=== PATIENT | female | born 1980 | race Caucasian/White ===

== ENCOUNTER 2019-05-31 00:15 | Inpatient (IN) | payer MEDICAID ==
[~2019-05-31] VITALS: Ht 167.6 cm; Wt 72.1 kg
[2019-05-31 00:15] VITALS: BP 125/80
--- NOTE | 2019-05-31 00:15 | NUR ---
39 Y/O FEMALE BIB EMS. EMS STATES PT TOLD DRIVE THROUGH [place] AT [place] IN THE BOX TO CALL 911. PT THEN WALKED TO THE SIDE OF THE DRIVE THROUGH AND LAYED DOWN. PT SMELLS OF ALCOHOL. BILAT EYES PERRLA. NO HAND ADMINISTRATOR PESTICIDE OR ABLE TO FOLLOW ORDERS AT THIS TIME. PT RESPONSIVE TO PAIN ONLY. VSS POSITOINED IN BED WITH HOB ELEVATED AND POSITIONED ON LEFT SIDE. CONTINUE TO MONITOR.
--- NOTE | 2019-05-31 00:15 | NUR ---
TRANSFERED FROM [facility] TO [facility].
[2019-05-31] MEDS ORDERED: NACL 0.9% 2,000 ML IV ONE (01:00)
--- NOTE | 2019-05-31 01:00 | NUR ---
PT IN BED RESTING WITH EYES CLOSED. VSS. ER MD AWARE. CONTINUE TO MONITOR.
--- NOTE | 2019-05-31 02:00 | NUR ---
PT IN BED RESTING WITH EYES CLOSED. VSS. ER AWARE. CONTINUE TO LUCIANA.
--- NOTE | 2019-05-31 05:00 | NUR ---
PT IN BED RESTING WITH EYES CLOSED. VSS. ER MD AWARE. CONTINUE TO MONITOR.
--- NOTE | 2019-05-31 05:15 | NUR ---
PT AWAKE AND REQUESTING PO FLUIDS. CONTINUE TO MONITOR.
--- NOTE | 2019-05-31 06:00 | NUR ---
PT STATES WISH TO SPEAK TO ER MD. ASKED PT WHY. PT STATES, "I WAS FEELING SUICIDAL EARLIER." I ASKED HER IF SHE IS FEELING LIKE THAT NOW. SHE REPLIED, "YES, MY BOYFRIEND BROKE UP WITH ME. SO I DRANK AND IM AFFRAID I WILL HURT MYSELF. I HAVE A HISTORY OF DEPRESSION AND CUTTING MYSELF. I AM FEELING VERY DEPRESSED RIGHT NOW." WHEN ASKED WHAT HER PLAN IS, HOW SHE INTENDS ON HARMING HERSELF, PATIENT REPLIED WITH. "I DON'T KNOW. I'M NOT GOING HOME. I AM UNSURE AND I DON'T HAVE A PLAN. I AM AFFRAID I WILL HURT MYSELF." DR PAULINO NOTIFIED. PT CALM. CONTINUE TO MONITOR.
--- NOTE | 2019-05-31 06:05 | NUR ---
ROOM STRIPPED AND BELONGINGS PLACED IN BAG AND LABLED. SENT TO SECURITY UNTIL PT IS RELEASED. PT STATES VOLUNTARY FOR HOLD. PT CALM. LAYING IN BED. CONTINUE TO MONITOR.
--- NOTE | 2019-05-31 06:06 | NUR ---
PT INFROMED THAT NO HOLD IS WRITTEN AT THIS TIME BUT A HOLD WILL BE WRITTEN IF SHE ATTEMPTS TO LEAVE. INFORMED PT THAT HER SAFETY IS OF THE HIGHEST CONCERN. PT STATES, "THANK YOU AND I UNDERSAND." EDMOND WILLOUGHBY NOTIFIED. CONTINUE TO MONITOR.
--- NOTE | 2019-05-31 06:28 | NUR ---
TELEPSYCH REQUEST INITIATED
[2019-05-31 06:46] LABS: HEMATOCRIT 26.9 % (36-48); HEMOGLOBIN 8.4 g/dL (12.0-16.0); MEAN CORPUSCULAR HEMOGLOBIN 24 pg (27-31); MEAN CORPUSCULAR HGB CONC 31 g/dL (33-37); MEAN CORPUSCULAR VOLUME 78.1 fL (80-94); PLATELET COUNT (AUTO) 129 K/uL (140-450); RED BLOOD CELL COUNT(AUTO) 3.44 MIL/uL (4.20-5.40); RED CELL DISTRIBUTION WIDTH 24.7 % (11.6-13.7); WHITE BLOOD COUNT (AUTO) 3.3 K/uL (4.8-10.8)
--- NOTE | 2019-05-31 06:55 | NUR ---
URINE SAMPLE COLLECTED AND TAKEN TO LAB.
[2019-05-31 07:07] LABS: LYMPHOCYTES % (MANUAL) 46 % (20-46)
[2019-05-31 07:08] LABS: EOSINOPHILS % (MANUAL) 2 % (0-4); MONOCYTES % (MANUAL) 4 % (5-12)
[2019-05-31 07:09] LABS: CARBON DIOXIDE 28.9 mmol/L (21-32); CHLORIDE 110 mmol/L (98-107); CREATININE 0.4 mg/dL (0.6-1.3); GFR ARICAN-AMERICAN 226 mL/min (>90); GLUCOSE 85 mg/dL (74-106); POTASSIUM 3.9 mmol/L (3.5-5.1); SODIUM SERUM 144 mmol/L (136-145); UREA NITROGEN, BLOOD 13 mg/dL (7-18)
--- NOTE | 2019-05-31 07:10 | NUR ---
ALL PT'S BELONGS SENT WITH TRACK LAYER HEAD POPEYE.
[2019-05-31 07:14] LABS: BARBITURATE, URINE NEG. ng/ml (NEG <=200); BENZODIAZEPINE, URINE NEG. ng/mL (NEG <=200); CANNABINOID, URINE POS. ng/mL (NEG <=50); COCAINE, URINE NEG. ng/mL (NEG <=300); OPIATE, URINE NEG. ng/mL (NEG <=2000); PHENCYCLIDINE SCREEN,URINE NEG. ng/mL (NEG <=25)
[2019-05-31 07:14] LABS: ASPARTATE AMINOTRANSFERASE 35 U/L (15-37); TOTAL BILIRUBIN 0.1 mg/dL (0.0-1.0)
[2019-05-31 07:15] LABS: ACETAMINOPHEN < 0.5 ug/ml (10-30); SALICYLATE < 2.8 mg/dL (2.8-20.0)
--- NOTE | 2019-05-31 07:15 | NUR ---
Report given to Julianne VASQUEZ.
--- NOTE | 2019-05-31 08:11 | NUR ---
Patient appears to be resting in bed. Vital Signs within normal limits. Respirations even and unlabored.
--- NOTE | 2019-05-31 08:54 | NUR ---
JANNA SPRAGUE AT BEDSIDE
--- NOTE | 2019-05-31 08:57 | NUR ---
BREAKFAST AT BEDSIDE
--- NOTE | 2019-05-31 09:01 | NUR ---
Received report from PEDRO Whitaker.
--- NOTE | 2019-05-31 09:10 | NUR ---
Pt report given to PEDRO MORSE. Transfer of care at this time.
--- NOTE | 2019-05-31 10:05 | NUR ---
PT IS RESTING WITH EYES CLOSED IN BED. VSS.
--- NOTE | 2019-05-31 10:25 | NUR ---
SPOKE AND GIVEN REPORT TO PSYCHAITRST VIA PHONE.
--- NOTE | 2019-05-31 10:35 | NUR ---
PSYCHAITRIST IS EVALUATING PT VIA TELEMED.
--- NOTE | 2019-05-31 10:42 | NUR ---
SPOKE TO DR. SHERWOOD. ORDER RECEIVED VIA PHONE HOLD PT ON [id number].
--- NOTE | 2019-05-31 11:05 | NUR ---
[place] [employer] AT BEDSIDE EVALUATING PATIENT
--- NOTE | 2019-05-31 11:11 | NUR ---
Sb nelson in [facility] - 05/31/19 at 1113 [address] [place]UL[place]YA PD IS AT BEDSIDE.
--- NOTE | 2019-05-31 12:13 | NUR ---
[facility] received pt packet via fax. The following facilities have been contacted regarding placement. [facility]: s/w Nery, states no beds at this time. Packet faxed for review. [facility]: No beds available, packet faxed for review. [facility]: s/w Melonie, no beds available. [facility]: s/w Maggie, states they will review packet Will continue to contact facilities, will contact with any update.
--- NOTE | 2019-05-31 12:32 | NUR ---
PT IS SLEEPING IN BED. VSS.
--- NOTE | 2019-05-31 12:42 | NUR ---
Patient appears to be resting in bed. Vital Signs within normal limits. Respirations even and unlabored.
--- NOTE | 2019-05-31 12:53 | NUR ---
LUNCH AT BEDSIDE
--- NOTE | 2019-05-31 13:39 | NUR ---
PT IS SLEEPING IN BED AT THIS TIME. VSS.
--- NOTE | 2019-05-31 14:44 | NUR ---
PT IS EATING IN BED. PT REPORTS HAVING SHAKINGS. DR. WEISS NOTIFIED AND EVALUATED PT AT BEDSIDE.
[2019-05-31] MEDS ORDERED: LORazepam 2 MG/ML VIAL IVP ONE (14:55)
--- NOTE | 2019-05-31 16:12 | NUR ---
PT IS SLEEPING IN BED.
--- NOTE | 2019-05-31 17:33 | NUR ---
PT IS RESTING IN BED WITH EYES CLOSED. VSS.
[2019-05-31] MEDS ORDERED: DOCUSATE SODIUM 100 MG GELCAP PO PRN (17:35)
[2019-05-31] MEDS ORDERED: ACETAMINOPHEN 325 MG TAB PO PRN (17:35)
[2019-05-31] MEDS ORDERED: HYDROcodone/APAP 5/325 MG 1 TAB TAB PO PRN (17:35)
[2019-05-31] MEDS ORDERED: LORazepam 2 MG/ML VIAL IM/IVP PRN ×2 (17:35→22:10)
[2019-05-31] MEDS ORDERED: ONDANSETRON 4 MG/2 ML VIAL IM/IVP PRN (17:35)
[2019-05-31] MEDS ORDERED: chlordiazePOXIDE 25 MG CAP PO SCH (17:40)
--- NOTE | 2019-05-31 17:43 | NUR ---
XRAY AT BEDSIDE
--- NOTE | 2019-05-31 17:45 | NUR ---
CALL TO RFID ENGINEER MAMEY FOR [facility] ROOM-ROOM GIVEN 110. ROOM ETA TO FOR PT UNK AT THIS TIME.
--- NOTE | 2019-05-31 17:54 | NUR ---
LAB AT BEDSIDE
--- NOTE | 2019-05-31 18:21 | NUR ---
PT AMB TO RESTROOM WITH STEADY GAIT, ASSISTED BY JEAN BAUTISTA
[2019-05-31 18:39] LABS: MAGNESIUM 1.3 mg/dL (1.8-2.4); PHOSPHORUS 2.9 mg/dL (2.5-4.9); THYROID STIMULATING HORMONE 2.67 uIU/mL (0.34-3.74)
--- NOTE | 2019-05-31 19:35 | NUR ---
PT ARRIVED AT UNIT VIA GURNEY, PT STABLE, NO DISTRESS NOTED, IV TO L AC 20G PATENT, INTACT, SL, PT ON ROOM AIR, NO SOB NOTED, RECEIVED REPORT FROM ER NURSE ELLE RN, PT DROWSY, EASILY ARROUSEABLE, MRSA SWAB TAKEN, V/S TAKEN WNL, INITIAL ASSESSMENT DONE, ALL SAFETY PRECAUTION MET, SITTER AT BEDSIDE, WILL CONTINUE TO MONITOR.
[2019-05-31 19:55] VITALS: BP 124/74
--- NOTE | 2019-05-31 20:50 | NUR ---
DUE MEDICATION ADMINISTERED, PT TOLERATED WELL, NO DISTRESS NOTED, SITTER AT BEDSIDE, WILL CONTINUE TO MONITOR.
[2019-05-31] MEDS ORDERED: MAGNESIUM OXIDE 400 MG TAB PO SCH (21:00)
[2019-05-31] MEDS: NACL 0.45% 1,000 ML IV SCH (21:00)
--- NOTE | 2019-05-31 22:10 | NUR ---
TALKED TO DR. BARRETT REGARDING PT TELE STATUS, PER DR. PITTMAN TO PUT PT ON M/S.
[2019-06-01] VITALS: BP 120/77
--- NOTE | 2019-06-01 00:01 | NUR ---
PT V/S TAKEN, WNL, SITTER AT BEDSIDE, WILL CONTINUE TO MONITOR.
[2019-06-01] MEDS ORDERED: CALCIUM CARBONATE 500 MG TAB.CHEW PO PRN (00:25)
--- NOTE | 2019-06-01 02:58 | NUR ---
ENDORSED PT TO PEDRO PEÑA FOR CONTINUOUS OF CARE.
--- NOTE | 2019-06-01 03:00 | NUR ---
RECEIVED ENDORSEMENT FORM JOSE VASQUEZ FOR CONTINUITY OF CARE, PT IN STABLE CONDITION.
--- NOTE | 2019-06-01 06:39 | NUR ---
PT SLEEPING IN BED NO S/S OF PAIN OR DISTRESS NOTED. MD CONSULT WITH PT DURING ROUNDS. IV FLUIDS 1/2 NS RUNNING AT 60MLS/HR ORDERED. SITTER AT BEDSIDE WILL ENDORSE PLAN OF CARE TO AM SHIFT, PT IN STABLE CONDITION.
--- NOTE | 2019-06-01 07:01 | NUR ---
PATIENT HAS BEEN SCREENED AND CATEGORIZED HIGH NUTRITION RISK. PATIENT WILL BE SEEN WITHIN 1-2 DAYS OF ADMISSION. 06/01/19-06/02/19 JULIO CEVALLOS MS, RDN
[2019-06-01 08:00] LABS: BASOPHILS % (AUTO) 0.6 % (0.0-2.0); EOSINOPHILS % (AUTO) 1.2 % (0.0-4.0); HEMATOCRIT 27.3 % (36-48); HEMOGLOBIN 8.5 g/dL (12.0-16.0); LYMPHOCYTES # (AUTO) 1.1 K/uL (2.5-16.5); LYMPHOCYTES % (AUTO) 26.2 % (20.5-51.1); MEAN CORPUSCULAR HEMOGLOBIN 25 pg (27-31); MEAN CORPUSCULAR HGB CONC 31 g/dL (33-37); MEAN CORPUSCULAR VOLUME 78.2 fL (80-94); MONOCYTES # (AUTO) 0.5 K/uL (0.8-1.0); MONOCYTES % (AUTO) 11.5 % (1.7-9.3); NEUTROPHILS # (AUTO) 2.5 K/uL (1.8-7.7); NEUTROPHILS % (AUTO) 60.5 % (42.2-75.2); PLATELET COUNT (AUTO) 129 K/uL (140-450); RED BLOOD CELL COUNT(AUTO) 3.49 MIL/uL (4.20-5.40); RED CELL DISTRIBUTION WIDTH 25.2 % (11.6-13.7); WHITE BLOOD COUNT (AUTO) 4.1 K/uL (4.8-10.8)
[2019-06-01 08:34] LABS: ANION GAP 7.9 (8-16); CARBON DIOXIDE 27.7 mmol/L (21-32); CREATININE 0.5 mg/dL (0.6-1.3); POTASSIUM 3.6 mmol/L (3.5-5.1)
[2019-06-01 08:43] LABS: CHOL/HDL RATIO 2.3 (1-4.5)
[2019-06-01] MEDS ORDERED: MULTIVITAMIN-12 10 ML, THIAMINE 100 MG, MAGNESIUM SULFATE 50% 2,000 MG, FOLIC ACID 1 MG... IV ONE ×5 (09:00)
--- NOTE | 2019-06-01 09:00 | NUR ---
RECEIVED PATIENT ASLEEP, SITTER AT BEDSIDE, NOT IN ANY DISTRESS NOTED. WITH IVF ON GOING AND INFUSING WELL. WILL CONTINUE TO MONITOR.
[2019-06-01] MEDS: FERROUS SULFATE 325 MG TABEC PO SCH (09:05)
[2019-06-01] MEDS: PANTOPRAZOLE 40 MG TABEC PO SCH (09:05)
[2019-06-01 09:10] LABS: MAGNESIUM 1.5 mg/dL (1.8-2.4); PHOSPHORUS 3.4 mg/dL (2.5-4.9)
[2019-06-01] MEDS ORDERED: chlordiazePOXIDE 25 MG CAP PO SCH ×2 (09:20→11:05)
--- NOTE | 2019-06-01 09:30 | NUR ---
DUE MEDICATIONS GIVEN AND TOLERATED WELL. DENIES OF HURTING HERSELF, SITTER AT BEDSIDE.
[2019-06-01 09:57] VITALS: BP 128/87
[2019-06-01 13:09] LABS: APPEARANCE,URINE CLEAR (CLEAR); BILIRUBIN,URINE NEGATIVE (NEGATIVE); BLOOD, URINE NEGATIVE (NEGATIVE); COLOR,URINE YELLOW (YELLOW); LEUKOCYTE ESTERASE ,URINE NEGATIVE (NEGATIVE); NITRITE, URINE NEGATIVE (NEGATIVE); UGLUCOSE NEGATIVE (NEGATIVE)
--- NOTE | 2019-06-01 14:30 | NUR ---
PATIENT ASLEEP MOST OF THE TIME.
--- NOTE | 2019-06-01 14:44 | NUR ---
We have received no new updates from the following faxed facilities: [facility]
[2019-06-01] MEDS: chlordiazePOXIDE 25 MG CAP PO SCH ×2 (15:02→17:46)
--- NOTE | 2019-06-01 15:05 | NUR ---
REPORT GIVEN TO PEDRO CREWS FOR CONTINUITY OF CARE.
--- NOTE | 2019-06-01 15:06 | NUR ---
Received report from PEDRO Parkinson. Pt asleep, respirations even & nonlabored, FLACC 0. Left AC IV intact with ongoing banana bag @ 150ml/hr. Sitter at bedside.
[2019-06-01 16:00] VITALS: BP 117/84
[2019-06-01] MEDS: FOLIC ACID 1 MG TAB PO SCH (18:00)
[2019-06-01] MEDS: MULTIVITAMIN 1 TAB PO SCH (18:00)
[2019-06-01] MEDS: THIAMINE 200 MG/2 ML VIAL IM SCH (18:00)
[2019-06-01] MEDS ORDERED: MAGNESIUM OXIDE 400 MG TAB PO SCH (18:00)
--- NOTE | 2019-06-01 18:00 | NUR ---
Pt quietly sitting up in bed, eating dinner, no signs of distress, no c/o discomfort. Sitter at bedside.
--- NOTE | 2019-06-01 18:30 | NUR ---
Thiamine, multivitamin, & folic acid not given. Meds ordered for 0900 admin.
--- NOTE | 2019-06-01 19:15 | NUR ---
Bedside report given to pm nurse Maggie.
--- NOTE | 2019-06-01 19:18 | NUR ---
RECEIVED REPORT FROM AM SHIFT NURSE. PT W/ 1; 1 SITTER 5150 HOLD. PT IN BED , EASILY AROUSABLE BY VERBAL STIMULI. W/ ONGOING BANANA BAG AT 150 ML AT R HAND G 24. FOR SEIZURE PRECAUTION
[2019-06-01 20:00] VITALS: BP 128/85
--- NOTE | 2019-06-01 20:40 | NUR ---
PT STATES HE IS FEELING ANXIOUS AND THAT HE WANTS A DRINK RIGHT NOW, AND HAVING DIFFICULTY COPING. WILL GIVE ATIVAN PRN. WILL CONTINUE TO MONITOR Addendum: 06/01/19 at 2042 by Maggie Cedillo RN PLS DELETE NOTE WRONG PATIENT
[2019-06-01] MEDS: NACL 0.45% 1,000 ML IV SCH (23:17)
--- NOTE | 2019-06-02 00:06 | NUR ---
PT WANTS TO SLEEP ASKING FOR A SLEEPING AID. INFORMED DR. BARRETT
[2019-06-02] MEDS ORDERED: MELATONIN 3 MG TAB PO PRN (00:10)
--- NOTE | 2019-06-02 01:22 | NUR ---
[facility] s/w Cheryl no beds [facility] s/w Aleena no beds [facility] s/w Mandie no beds [place] s/w Gumaro no beds [facility] s/w John, no beds [facility] s/w Steff no beds [facility] s/w Volodymyr no beds
--- NOTE | 2019-06-02 02:00 | NUR ---
PT SLEEPING COMFORTABLY IN BED, SUPINE. NO COMPLAINTS AT THIS TIME
[2019-06-02] MEDS: NACL 0.45% 1,000 ML IV SCH ×2 (02:51→15:33)
--- NOTE | 2019-06-02 03:08 | NUR ---
CHECKED PT ROUTINELY NO COMPLAINTS AT THSI TIME, SEIZURE PRECAUTION
[2019-06-02 04:00] VITALS: BP 113/74
--- NOTE | 2019-06-02 05:23 | NUR ---
PTY Addendum: 06/02/19 at 0524 by Maggie Cedillo RN PT STILL SLEEPING. ON HER SIDE. NO COMPLAINTS AT THIS TIME. WILL CONTINUE TO MONITOR
--- NOTE | 2019-06-02 06:42 | NUR ---
PT ASLEEP BUT EASILY AROUSABLE BY VERBAL STIMULI .PT IN STABLE CONDITION NO COMPLAINTS AT THIS TIME. WILL ENDORSE TO NEXT SHIFT
[2019-06-02 07:23] LABS: BASOPHILS % (AUTO) 0.3 % (0.0-2.0); EOSINOPHILS % (AUTO) 0.9 % (0.0-4.0); HEMATOCRIT 29.9 % (36-48); HEMOGLOBIN 9.5 g/dL (12.0-16.0); LYMPHOCYTES # (AUTO) 1.2 K/uL (2.5-16.5); LYMPHOCYTES % (AUTO) 30.9 % (20.5-51.1); MEAN CORPUSCULAR HEMOGLOBIN 25 pg (27-31); MEAN CORPUSCULAR HGB CONC 32 g/dL (33-37); MEAN CORPUSCULAR VOLUME 78.6 fL (80-94); MONOCYTES # (AUTO) 0.5 K/uL (0.8-1.0); MONOCYTES % (AUTO) 11.6 % (1.7-9.3); NEUTROPHILS # (AUTO) 2.2 K/uL (1.8-7.7); NEUTROPHILS % (AUTO) 56.3 % (42.2-75.2); PLATELET COUNT (AUTO) 128 K/uL (140-450); RED BLOOD CELL COUNT(AUTO) 3.81 MIL/uL (4.20-5.40); RED CELL DISTRIBUTION WIDTH 24.9 % (11.6-13.7); WHITE BLOOD COUNT (AUTO) 3.9 K/uL (4.8-10.8)
--- NOTE | 2019-06-02 07:25 | NUR ---
RECEIVED PT FROM EXCHANGE UNDERWRITING CONSULTANT NURSESOLEDAD, PT IS AWAKE AND LYING ON THE BED, 1:1 SITTER ON THE BEDSIDE, IV LINE ON THE RT HAND G.24 WITH 1/2 NS INFUSING AT 60ML/ HR, NO SIGN OF DISTRESS NOTED, WILL CONTINUE TO MONITOR PT.
[2019-06-02 07:29] LABS: ANION GAP 10.1 (8-16); CARBON DIOXIDE 28.5 mmol/L (21-32); CREATININE 0.5 mg/dL (0.6-1.3); POTASSIUM 3.6 mmol/L (3.5-5.1)
[2019-06-02 07:30] LABS: PHOSPHORUS 3.1 mg/dL (2.5-4.9)
[2019-06-02 08:00] VITALS: BP 119/70
[2019-06-02] MEDS: FERROUS SULFATE 325 MG TABEC PO SCH (08:18)
[2019-06-02] MEDS: ASCORBIC ACID 500 MG TAB PO SCH (08:18)
[2019-06-02] MEDS: FOLIC ACID 1 MG TAB PO SCH (08:18)
--- NOTE | 2019-06-02 08:18 | NUR ---
PT IS AWAKE, ORAL AND IM MEDICATIONS WERE GIVEN TO PT AND TOLERATED IT, PARAMETERS CHECKED. WILL MONITOR PT.
[2019-06-02] MEDS: MULTIVITAMIN 1 TAB PO SCH (08:19)
[2019-06-02] MEDS: chlordiazePOXIDE 25 MG CAP PO SCH ×3 (08:19→17:51)
[2019-06-02] MEDS: PANTOPRAZOLE 40 MG TABEC PO SCH (08:19)
[2019-06-02] MEDS: THIAMINE 200 MG/2 ML VIAL IM SCH (08:19)
[2019-06-02 09:06] LABS: TRANSFERRIN 243 mg/dL (200-370)
[2019-06-02] MEDS ORDERED: CALCIUM CARBONATE 500 MG TAB.CHEW PO PRN (11:48)
--- NOTE | 2019-06-02 12:53 | NUR ---
PT IS AWAKE AND BP WAS 129/78, PULSE IS 76, O2 SATURATION IS 96%, ORAL MEDICATION WAS GIVEN AND PT TOLERATED IT. WILL MONITOR PT.
--- NOTE | 2019-06-02 15:05 | NUR ---
06/02/19 RD INITIAL ASSESSMENT COMPLETED PLEASE REFER TO NUTRITION ASSESSMENT UNDER CARE ACTIVITY FOR ESTIMATED NUTRITIONAL NEEDS. 1. CONTINUE REGULAR DIET TOLERATED 2. FOLLOW UP WITH SOBRIETY NUTRITION EDUCATION 3. RD TO FOLLOW-UP 5-7 DAYS, LOW RISK SALVATORE ROTH, RD
--- NOTE | 2019-06-02 15:18 | NUR ---
PT IS ASLEEP, 1:1 SITTER ON THE BEDSIDE. WILL MONITOR PT.
--- NOTE | 2019-06-02 15:33 | NUR ---
PT'S IVF BAG WAS CHANGED NOW.
[2019-06-02 16:00] VITALS: BP 117/75
--- NOTE | 2019-06-02 17:51 | NUR ---
PT IS AWAKE AND LYING ON THE BED, ORAL MEDICATION WAS GIVEN AND TOLERATED IT. WILL MONITOR PT.
--- NOTE | 2019-06-02 19:20 | NUR ---
ENDORSED PT TO TOBACCO STEMMER MACHINE NURSE FOR CONTINUITY OF CARE.
--- NOTE | 2019-06-02 19:30 | NUR ---
RECEIVED BEDSIDE REPORT FROM DAY SHIFT NURSE. PATIENT IS SLEEPING AROUSABLE BY NAME AND TOUCH. RESPIRATION EVEN UNLABORED ON ROOM AIR. NO DISTRESS NOTED. SKIN IS WARM AND DRY. IV PATENT AND INTACT. DENIES PAIN. PLAN OF CARE WAS DISCUSSED. ALL SAFETY MEASURES IN PLACE. SITTER AT BEDSIDE. WILL CONTINUE TO MONITOR.
--- NOTE | 2019-06-02 20:00 | NUR ---
INITIAL ASSESSMENT DONE. VITALS WERE TAKEN. PATIENT IN STABLE CONDITION. WILL CONTINUE TO MONITOR.
[2019-06-02] MEDS ORDERED: traZODone 50 MG TAB PO SCH (21:00)
--- NOTE | 2019-06-02 21:00 | NUR ---
ALL SCHEDULED MEDS WERE GIVEN PER ORDER. NO ASE NOTED. PATIENT ASK FOR FOOD SHE SAID SHES HUNGRY. WILL CONTINUE TO MONITOR.
--- NOTE | 2019-06-02 22:00 | NUR ---
PATIENT SLEEPING RESPIRATION EVEN UNLABORED ON ROOM AIR. NO DISTRESS NOTED. SITTER AT BEDSIDE. WILL CONTINUE TO MONITOR.
[2019-06-03] VITALS: BP 109/72
--- NOTE | 2019-06-03 | NUR ---
VITALS WERE TAKEN. PATIENT IN STABLE CONDITION. NO DISTRESS NOTED. SITTER AT BEDSIDE. WILL CONTINUE TO MONITOR.
--- NOTE | 2019-06-03 02:00 | NUR ---
CHECKED PATIENT. PATIENT SLEEPING RESPIRATION EVEN UNLABORED ON ROOM AIR. NO DISTRESS NOTED. SITTER AT BEDSIDE WILL CONTINUE TO MONITOR.
--- NOTE | 2019-06-03 04:00 | NUR ---
CHECKED PATIENT. PATIENT SLEEPING RESPIRATION EVEN UNLABORED ON ROOM AIR. NO DISTRESS NOTED. SITTER AT BEDSIDE. WILL CONTINUE TO MONITOR.
[2019-06-03 07:07] LABS: BASOPHILS % (AUTO) 0.5 % (0.0-2.0); EOSINOPHILS # (AUTO) 0.1 K/uL (0-0.4); EOSINOPHILS % (AUTO) 1.3 % (0.0-4.0); HEMOGLOBIN 9.1 g/dL (12.0-16.0); LYMPHOCYTES # (AUTO) 1.4 K/uL (2.5-16.5); LYMPHOCYTES % (AUTO) 28.9 % (20.5-51.1); MEAN CORPUSCULAR HEMOGLOBIN 25 pg (27-31); MEAN CORPUSCULAR HGB CONC 31 g/dL (33-37); MEAN CORPUSCULAR VOLUME 78.8 fL (80-94); MONOCYTES # (AUTO) 0.6 K/uL (0.8-1.0); MONOCYTES % (AUTO) 11.5 % (1.7-9.3); NEUTROPHILS # (AUTO) 2.8 K/uL (1.8-7.7); NEUTROPHILS % (AUTO) 57.8 % (42.2-75.2); PLATELET COUNT (AUTO) 130 K/uL (140-450); RED BLOOD CELL COUNT(AUTO) 3.68 MIL/uL (4.20-5.40); WHITE BLOOD COUNT (AUTO) 4.9 K/uL (4.8-10.8)
--- NOTE | 2019-06-03 07:17 | NUR ---
ENDORSED PATIENT TO DAY SHIFT NURSE FOR CONTINUITY OF CARE. PATIENT IN STABLE CONDITION.
--- NOTE | 2019-06-03 07:22 | NUR ---
RECEIVED PT FROM CABLE STRETCHER AND TESTER NURSE, PT IS AWAKE AND LYING ON THE BED, SITTER ON THE BEDSIDE, IV LINE ON THE RT HAND G. 24 WITH 1/2 NS INFUSING AT 60ML/HR, PT DENIES PAIN AND NO SIGN OF DISTRESS NOTED. WILL MONITOR PT.
[2019-06-03 07:30] LABS: ANION GAP 9.2 (8-16); CARBON DIOXIDE 28.4 mmol/L (21-32); CREATININE 0.5 mg/dL (0.6-1.3); POTASSIUM 3.6 mmol/L (3.5-5.1)
[2019-06-03 07:34] LABS: MAGNESIUM 1.6 mg/dL (1.8-2.4)
[2019-06-03 08:00] VITALS: BP 106/68
[2019-06-03] MEDS: ASCORBIC ACID 500 MG TAB PO SCH (08:12)
[2019-06-03] MEDS: FERROUS SULFATE 325 MG TABEC PO SCH (08:12)
[2019-06-03] MEDS: PANTOPRAZOLE 40 MG TABEC PO SCH (08:12)
[2019-06-03] MEDS: FOLIC ACID 1 MG TAB PO SCH (08:12)
[2019-06-03] MEDS: MULTIVITAMIN 1 TAB PO SCH (08:12)
[2019-06-03] MEDS: chlordiazePOXIDE 25 MG CAP PO SCH ×3 (08:12→18:10)
--- NOTE | 2019-06-03 08:12 | NUR ---
PT IS AWAKE AND HAVING BREAKFAST, SITTER ON THE BEDSIDE, ORAL AND I, MEDICATIONS WERE GIVEN AND PT TOLERATED IT, NO SIGN OF DISTRESS NOTED AND WILL MONITOR PT.
[2019-06-03] MEDS: THIAMINE 200 MG/2 ML VIAL IM SCH (08:13)
[2019-06-03 08:38] LABS: FERRITIN 8 ng/mL (15-150)
[2019-06-03] MEDS ORDERED: ESCITALOPRAM 20 MG TAB PO SCH (09:00)
[2019-06-03] MEDS ORDERED: MAGNESIUM OXIDE 400 MG TAB PO SCH (09:03)
[2019-06-03] MEDS ORDERED: MAG SULF 2000 MG/WATER PREMIX 50 ML IV SCH (09:03)
--- NOTE | 2019-06-03 10:00 | NUR ---
SWALLOW TEST WAS DONE TO PT, SWALLOWING REFLEX IS FINE. NO PAIN WHEN PT SWALLOWS, DR. BAKER WAS INFORMED.
[2019-06-03] MEDS ORDERED: ALUMINUM HYD/MAG/SIMETHICONE 30 ML UDC PO SCH (10:15)
[2019-06-03] MEDS ORDERED: LIDOCAINE VISCOUS 2% 20 ML UDC PO SCH (10:16)
[2019-06-03] MEDS ORDERED: DICYCLOMINE HCL LIQUID 10 MG/5 ML UDC PO SCH (10:16)
--- NOTE | 2019-06-03 10:55 | NUR ---
S.T. BEDSIDE SWALLOW EVAL COMPLETED See report. Pt presents with adequate oropharyngeal swallow function for textures given without overt s/s aspiration. Suspect mild esophageal dysmotility with firm solids due to hx of erosive esophagitis 2/2 ETOH. Recommend: 1) Downgrade diet textures to mechanical soft ground diet. Thin liquids okay. 2) P.O. meds whole one at a time as tolerated. 3) Defer to MD/DO for dietary restrictions. Consider upper GI/esophagram should symptoms persist or worsen. No further tx indicated at this time. DC to [facility]. Endorsed to PERDO [place]. Time: 6585-9742
[2019-06-03] MEDS: NACL 0.45% 1,000 ML IV SCH (10:58)
--- NOTE | 2019-06-03 12:06 | NUR ---
We haven't received any updates from the following facilities we faxed clinicals. [facility], [facility], [facility], [facility], [facility] and [facility].
--- NOTE | 2019-06-03 13:10 | NUR ---
PT WAS GIVEN ORAL MEDICATION NOW.
[2019-06-03 16:00] VITALS: BP 99/63
[2019-06-03] MEDS ORDERED: TRAZ-466 PO (18:38)
[2019-06-03] MEDS ORDERED: ESCI20TA47 PO (18:38)
--- NOTE | 2019-06-03 19:30 | NUR ---
EMNDORSED PT TO CHARGE COORDINATOR NURSE FOR CONTINUITY OF THE DISCHARGE PROCESS. PT IS STABLE AT THIS TIME.
--- NOTE | 2019-06-03 20:03 | NUR ---
ALL DISCHARGE PAPER WORKS SIGNED BY PT. DISCHARGED TO HOME AWAKE AND ALERT. ORIENTED X 4. ROM X 4. ABLE TO VERBALIZE IN CZECH WELL. IVF SITE TO RIGHT HAND DISCONTINUED WITH TIP INTACT. TOLERATED WELL. PT. EDUCATION , MEDICATIONS AND FOLLOW UP DISCUSSED WITH HER. NO COMPLAINTS DONE. ACCOMPANIED BY POWERHOUSE TENDER TO THE FRONT. TRANSPORTATION TICKET FOR BUS PROVIDED BY DRAIN CLEANER PLUMBER TO HER REQUESTED. ALL PERSONAL BELONGINS ACCOUNTED FOR. NOTHING LEFT BEHIND.
== END 2019-06-03 20:00 | disposition home or self-care (01) | DRG 812 ==
LOC: MED 00:15 → MTU 17:39
PROVIDERS: ADMIT General Practice; ATTEND General Practice
DX: T43.621A Poisoning by amphetamines, accidental (unintentional), initial encounter (principal); G92 Toxic encephalopathy; D61.818 Other pancytopenia; R45.851 Suicidal ideations; E83.42 Hypomagnesemia; E44.1 Mild protein-calorie malnutrition; F10.129 Alcohol abuse with intoxication, unspecified; F15.10 Other stimulant abuse, uncomplicated; Y90.1 Blood alcohol level of 20-39 mg/100 ml; Z68.25 Body mass index [BMI] 25.0-25.9, adult; F32.9 Major depressive disorder, single episode, unspecified; Z91.5 Personal history of self-harm; D64.9 Anemia, unspecified; Y92.89 Other specified places as the place of occurrence of the external cause
CPT/HCPCS: 36415; 71045; 80048; 80053; 80305; 81003; 81025; 82140; 82272; 82728; 83036; 83540; 83690; 83735; 84100; 84443; 85025; 85045; 85610; 85730; 87081; 92610; 96361; 96374; 99285; A9153; G0480; G0482; J2060; J3411; J3475; J3490; J7030; Q0092